=== PATIENT | female | born 1970 | race Two or more races ===

== ENCOUNTER 2017-04-05 22:13 | Emergency (ER) | payer MEDICARE, OTHER ==
[~2017-04-05] VITALS: Ht 172.7 cm; Wt 102.8 kg
[2017-04-05] MEDS ORDERED: SODIUM CHLORIDE 0.9% 1,000ML IVBOLUS ONE (23:30)
[2017-04-05] MEDS ORDERED: SODIUM CHLORIDE FLUSH 10ML SYR IVF ONE (23:30)
[2017-04-05 23:37] LABS: ASPARTATE AMINO TRANSFERASE 18 U/L (15-37); BLOOD UREA NITROGEN 15 mg/dL (7-18)
[2017-04-05 23:51] LABS: IS PT STATUS REG ER OR PRE ER? YES
[2017-04-06] MEDS ORDERED: LORazepam 2 MG/ML, 1ML ONE (00:49)
[2017-04-06] MEDS ORDERED: LORazepam 2 MG/ML, 1ML IVPush ONE (01:00)
[2017-04-06 01:03] VITALS: BP 139/89
== END 2017-04-06 01:31 | disposition home or self-care (01) ==
LOC: ED 04-06 01:11
DX: R55 Syncope and collapse (principal); R11.2 Nausea with vomiting, unspecified; R06.00 Dyspnea, unspecified
CPT/HCPCS: 36415; 71010; 80053; 83880; 84436; 84443; 84484; 84703; 85025; 93005; 96361; 96374; 99285; J2060; J7030

== ENCOUNTER → 2018-08-27 | Outpatient (CLI) | payer OTHER ==
[~2018-08-27] MED LIST: ATOR10TA9 PO
== END | disposition home or self-care (01) ==
LOC: CFH 10:59
PROVIDERS: ATTEND Obstetrics & Gynecology
DX: Z12.31 Encounter for screening mammogram for malignant neoplasm of breast (principal)
CPT/HCPCS: 77063; 77067

== ENCOUNTER 2018-08-28 05:40 | Day surgery (SDC) | payer OTHER ==
[2018-08-25 16:44] LABS: ALANINE AMINOTRANSFERASE 26 U/L (12-78); ALBUMIN 3.4 g/dL (3.4-5.0); ANION GAP 7 mmol/L (5-15); CALCIUM 8.5 mg/dL (8.5-10.1); CHLORIDE 109 mmol/L (98-107); CREATININE 0.68 mg/dL (0.55-1.02)
[2018-08-25 16:48] LABS: ALKALINE PHOSPHATASE 63 U/L (45-117); BILIRUBIN,TOTAL 0.5 mg/dL (0.2-1.0); TOTAL PROTEIN 6.9 g/dL (6.4-8.2)
[2018-08-25 19:27] LABS: BASOPHILS # (AUTO) 0.03 x10^3/uL (0-0.1); BASOPHILS % (AUTO) 0 % (0-1); EOSINOPHILS % (AUTO) 2 % (1-7); LYMPHOCYTES # (AUTO) 2.54 x10^3/uL (1-3.4); LYMPHOCYTES % (AUTO) 29 % (22-44); MD NO; MEAN CORPUSCULAR HEMOGLOBIN 28.6 pg (27.0-34.8); MEAN CORPUSCULAR HGB CONC 32.9 g/dL (32.4-35.8); MEAN PLATELET VOLUME 9.6 fL (7.4-10.4); MONOCYTES # (AUTO) 0.93 x10^3/uL (0.2-0.8); MONOCYTES % (AUTO) 11 % (2-9); NEUTROPHILS # (AUTO) 5.17 x10^3/uL (1.8-6.8); NEUTROPHILS % (AUTO) 58 % (42-75); PLATELET COUNT 292 x10^3/uL (130-400); RED BLOOD COUNT 5.11 x10^6/uL (3.82-5.3); RED CELL DISTRIBUTION WIDTH 14.2 % (9.6-15.2)
[~2018-08-28] VITALS: Ht 175.3 cm; Wt 104.5 kg
[2018-08-28] MEDS ORDERED: EPINEPHRINE 1 MG/ML, 1ML ONE (06:21)
[2018-08-28] MEDS ORDERED: BUPIVACAINE/PF 0.25% ONE (06:21)
[2018-08-28] MEDS ORDERED: FLUORESCEIN SODIUM 500 MG/5 ML ONE (06:22)
[2018-08-28] MEDS ORDERED: LACTATED RINGERS 1,000 ML IV SCH (06:27)
[2018-08-28 06:33] VITALS: BP 157/96
[2018-08-28] MEDS ORDERED: MIDAZOLAM 1 MG/ML, 2ML ONE (07:10)
[2018-08-28] MEDS ORDERED: FENTANYL PF 250 MCG/5ML ONE (07:10)
[2018-08-28] MEDS ORDERED: PROPOFOL 10 MG/ML, 20ML ONE (07:11)
[2018-08-28] MEDS ORDERED: ROCURONIUM 10MG/ML,5ML ONE (07:12)
[2018-08-28] MEDS ORDERED: PROMETHAZINE 25 MG/ML, 1ML IV PRN (07:30)
[2018-08-28] MEDS ORDERED: MEPERIDINE/PF 25MG/0.5ML IVPush PRN (07:30)
[2018-08-28] MEDS ORDERED: GABAPENTIN 300 MG CAPSULE PO ONE (07:30)
[2018-08-28] MEDS ORDERED: ACETAMINOPHEN 500 MG TABLET PO ONE (07:30)
[2018-08-28] MEDS ORDERED: FAMOTIDINE 20 MG TABLET PO ONE (07:30)
[2018-08-28] MEDS ORDERED: ONDANSETRON 2MG/ML, 2ML IV PRN (07:30)
[2018-08-28] MEDS ORDERED: hydrALAzine 20 MG/ML, 1ML IV PRN (07:30)
[2018-08-28] MEDS ORDERED: LABETALOL 5MG/ML, 20ML IV PRN (07:30)
[2018-08-28] MEDS ORDERED: CEFAZOLIN 1,000 MG ONE (07:31)
[2018-08-28] MEDS ORDERED: DEXAMETHASONE 4 MG/ML, 1ML ONE ×2 (07:42)
[2018-08-28] MEDS ORDERED: ONDANSETRON 2MG/ML, 2ML ONE (09:05)
[2018-08-28] MEDS ORDERED: FENTANYL PF 100 MCG/2ML ONE (09:25)
[2018-08-28] MEDS ORDERED: HYDROmorphone 2 MG/ML, 1ML ONE (09:25)
[2018-08-28] MEDS: FENTANYL PF 100 MCG/2ML IV PRN ×3 (09:28→09:53)
[2018-08-28] MEDS: HYDROmorphone 2 MG/ML, 1ML IVPush PRN ×4 (09:58→10:20)
[2018-08-28] MEDS ORDERED: HYDROcodone/APAP 5/325 TABLET ONE (14:51)
[2018-08-28] MEDS ORDERED: HYDROcodone/APAP 5/325 TABLET PO PRN (15:00)
[2018-08-28 15:08] LABS: MEAN CORPUSCULAR HEMOGLOBIN 29.1 pg (27.0-34.8); MEAN CORPUSCULAR HGB CONC 33.5 g/dL (32.4-35.8); MEAN CORPUSCULAR VOLUME 86.9 fL (80-100); MEAN PLATELET VOLUME 9.1 fL (7.4-10.4); PLATELET COUNT 289 x10^3/uL (130-400); RED BLOOD COUNT 5.24 x10^6/uL (3.82-5.3)
[2018-08-28 15:20] LABS: BASOPHILS # (AUTO) 0.02 x10^3/uL (0-0.1); BASOPHILS % (AUTO) 0 % (0-1); EOSINOPHILS % (AUTO) 0 % (1-7); LYMPHOCYTES # (AUTO) 0.94 x10^3/uL (1-3.4); LYMPHOCYTES % (AUTO) 5 % (22-44); MD SCAN; MONOCYTES % (AUTO) 1 % (2-9); NEUTROPHILS # (AUTO) 17.44 x10^3/uL (1.8-6.8); NEUTROPHILS % (AUTO) 94 % (42-75)
== END 2018-08-28 18:00 | disposition home or self-care (01) ==
LOC: OUT 05:40
PROVIDERS: ATTEND Obstetrics & Gynecology
DX: D25.9 Leiomyoma of uterus, unspecified (principal); N94.6 Dysmenorrhea, unspecified; N92.0 Excessive and frequent menstruation with regular cycle; E78.00 Pure hypercholesterolemia, unspecified; D50.9 Iron deficiency anemia, unspecified; Z98.890 Other specified postprocedural states; Z90.721 Acquired absence of ovaries, unilateral; Z88.8 Allergy status to other drugs, medicaments and biological substances
CPT/HCPCS: 36415; 58262; 80053; 84703; 85025; 86850; 86900; 88307; J0171; J0690; J1100; J1170; J2250; J2405; J2704; J3010; J3490; J7120

== ENCOUNTER 2018-09-18 17:41 | Emergency (ER) | payer OTHER ==
[~2018-09-18] VITALS: Ht 172.7 cm; Wt 104.8 kg
--- NOTE | 2018-09-18 18:00 | NUR ---
first contact with pt. pt c/o vaginal bleeding with blood clot since this morning. pt states that "i had hysterectomy 3 weeks ago." pt denies any abd pain, fever, n, v at this time. pt aox4. resps even and unlabored. pt's at bedside. awaiting orders.
--- NOTE | 2018-09-18 18:05 | NUR ---
PT TO US, NADN AT TRANSPORT.
--- NOTE | 2018-09-18 18:16 | NUR ---
pt back to room from us.
[2018-09-18 18:45] LABS: ALBUMIN 3.8 g/dL (3.4-5.0); ANION GAP 6 mmol/L (5-15); CALCIUM 9.3 mg/dL (8.5-10.1); CHLORIDE 108 mmol/L (98-107); CREATININE 0.71 mg/dL (0.55-1.02)
[2018-09-18 18:47] LABS: BASOPHILS # (AUTO) 0.05 x10^3/uL (0-0.1); BASOPHILS % (AUTO) 1 % (0-1); EOSINOPHILS # (AUTO) 0.28 x10^3/uL (0-0.4); EOSINOPHILS % (AUTO) 3 % (1-7); LYMPHOCYTES # (AUTO) 1.96 x10^3/uL (1-3.4); LYMPHOCYTES % (AUTO) 19 % (22-44); MD NO; MEAN CORPUSCULAR HEMOGLOBIN 28.6 pg (27.0-34.8); MEAN CORPUSCULAR HGB CONC 33.5 g/dL (32.4-35.8); MEAN CORPUSCULAR VOLUME 85.3 fL (80-100); MEAN PLATELET VOLUME 8.7 fL (7.4-10.4); MONOCYTES # (AUTO) 0.71 x10^3/uL (0.2-0.8); MONOCYTES % (AUTO) 7 % (2-9); NEUTROPHILS # (AUTO) 7.15 x10^3/uL (1.8-6.8); NEUTROPHILS % (AUTO) 70 % (42-75); PLATELET COUNT 368 x10^3/uL (130-400); RED BLOOD COUNT 5.31 x10^6/uL (3.82-5.3); RED CELL DISTRIBUTION WIDTH 13.5 % (9.6-15.2)
--- NOTE | 2018-09-18 19:03 | NUR ---
[facility] REPORT GIVEN TO BLAINE PEARSON.
[2018-09-18 19:41] VITALS: BP 114/78
--- NOTE | 2018-09-18 19:43 | NUR ---
BRAD Jones at bedside to update pt with POC and results.
--- NOTE | 2018-09-18 20:01 | NUR ---
preceptor note: pt given dc instructions. pt a&o, resps even and unlabored. 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 pt given instructions to follow up with obgyn. pt amb to dc desk with steady gait accompanied by .
== END 2018-09-18 20:02 | disposition home or self-care (01) ==
LOC: ED 19:45
DX: N99.820 Postprocedural hemorrhage of a genitourinary system organ or structure following a genitourinary system procedure (principal); Z90.710 Acquired absence of both cervix and uterus; Z88.8 Allergy status to other drugs, medicaments and biological substances
CPT/HCPCS: 36415; 76856; 80048; 82040; 85025; 99284

== ENCOUNTER 2020-03-31 10:08 | Outpatient (CLI) | payer OTHER | END 2020-03-31 23:59 | disposition home or self-care (01) | LOC: CFH 10:08 | PROVIDERS: ATTEND Family Medicine | DX: Z12.31 Encounter for screening mammogram for malignant neoplasm of breast (principal) | CPT/HCPCS: 77063; 77067 ==